=== PATIENT | female | born 1990 | race Caucasian/White ===

== ENCOUNTER 2018-05-03 13:54 | Emergency (ER) | payer MEDICAID ==
[~2018-05-03] VITALS: Ht 160 cm; Wt 54.4 kg
[2018-05-03 14:02] VITALS: Ht 160 cm; Wt 54.4 kg
[2018-05-03 14:24] LABS: BASOPHIL % 0.4 % (0-2); PLATELET COUNT 242 x10^3mcL (130-400); RED CELL DISTRIBUTION WIDTH 14.5 % (11.5-14.5)
[2018-05-03 14:34] LABS: CALCIUM 8.6 mg/dL (8.5-10.1); CARBON DIOXIDE 26.1 mmol/L (21-32); CHLORIDE SERUM 101 mmol/L (98-107); CREATININE SERUM 0.6 mg/dL (0.6-1.0); GFR1 > 60 mL/min; GLUCOSE SERUM 100 mg/dL (74-106); POTASSIUM SERUM 3.8 mmol/L (3.5-5.1); SODIUM SERUM 134 mmol/L (136-145)
[2018-05-03 14:39] LABS: ALBUMIN 3.4 g/dL (3.4-5.0); ALKALINE PHOSPHATASE 52 U/L (46-116); ALT/SGPT 16 U/L (14-59); AST/SGOT 14 U/L (15-37); TOTAL PROTEIN, SERUM 7.6 g/dL (6.4-8.2)
[2018-05-03 15:24] LABS: BILIRUBIN TOTAL 0.17 mg/dL (0.20-1.00)
[2018-05-03 18:10] VITALS: BP 1239/92
== END 2018-05-03 18:10 | disposition home or self-care (01) ==
LOC: ED 13:54
PROVIDERS: Emergency Medicine
DX: O21.9 Vomiting of pregnancy, unspecified (principal); O23.41 Unspecified infection of urinary tract in pregnancy, first trimester
CPT/HCPCS: J2405

== ENCOUNTER 2019-04-28 16:12 | Emergency (ER) | payer MEDICAID ==
[~2019-04-28] VITALS: Ht 157.5 cm; Wt 58.1 kg
[2019-04-28 16:55] VITALS: Ht 157.5 cm; Wt 58.1 kg
[2019-04-28 19:00] LABS: BASOPHIL % 0.2 % (0-2); PLATELET COUNT 271 x10^3mcL (130-400)
[2019-04-28 19:03] LABS: RED CELL DISTRIBUTION WIDTH 14.8 % (11.5-14.5)
[2019-04-28 19:12] LABS: CALCIUM 8.9 mg/dL (8.5-10.1); CARBON DIOXIDE 26.4 mmol/L (21-32); CHLORIDE SERUM 103 mmol/L (98-107); CREATININE SERUM 0.5 mg/dL (0.6-1.0); GFR1 > 60 mL/min; GLUCOSE SERUM 105 mg/dL (74-106); POTASSIUM SERUM 3.3 mmol/L (3.5-5.1); SODIUM SERUM 137 mmol/L (136-145)
[2019-04-28 19:16] LABS: ALKALINE PHOSPHATASE 56 U/L (46-116); ALT/SGPT 19 U/L (14-59); AST/SGOT 14 U/L (15-37); BILIRUBIN TOTAL 0.1 mg/dL (0.20-1.00); LIPASE 109 IU/L (73-393); TOTAL PROTEIN, SERUM 7.1 g/dL (6.4-8.2)
[2019-04-28 19:17] LABS: ALBUMIN 2.9 g/dL (3.4-5.0)
[2019-04-28 19:42] VITALS: BP 105/80
== END 2019-04-28 19:42 | disposition home or self-care (01) ==
LOC: ED 16:12
PROVIDERS: Emergency Medicine
DX: O26.891 Other specified pregnancy related conditions, first trimester (principal); R07.89 Other chest pain; R06.02 Shortness of breath; R50.9 Fever, unspecified; R09.81 Nasal congestion; R05 Cough; J02.9 Acute pharyngitis, unspecified
CPT/HCPCS: 36415